=== PATIENT | male | born 1980 | race Caucasian/White ===

== ENCOUNTER 2016-11-02 20:24 | Emergency (ER) | payer OTHER | END 2016-11-02 22:26 | disposition other institution (70) | LOC: FER 20:24 | DX: K92.2 Gastrointestinal hemorrhage, unspecified (principal); Z88.5 Allergy status to narcotic agent; Z98.890 Other specified postprocedural states | CPT/HCPCS: 99285 ==

== ENCOUNTER 2020-11-04 04:48 | Inpatient (IN) | payer OTHER ==
[2020-11-04 05:29] LABS: BASOPHIL 0.8 % (0-2); EOSINOPHIL 2.6 % (0-5); HCT 43.2 % (42.0-52.0); HGB 13.4 g/dl (13.2-18.0); LYMPHOCYTE 20.7 % (15-48); MCH 27.2 pg (25.0-31.0); MCV 87.8 fL (78.0-100.0); MONOCYTE 8.3 % (0-12); MPV 11.7 fL (6.0-9.5); NEUTROPHIL 67.3 % (41-80); NRBC 0; PLT 189 K/uL (150-400); RBC 4.92 M/uL (4.70-6.00); WBC 9.7 K/uL (4.0-10.5)
[2020-11-04 05:40] LABS: ALBUMIN 3.5 g/dL (3.4-5.0); BILIRUBIN - TOTAL 1.2 mg/dL (0.2-1.0); BUN/CREAT RATIO (CALC) 13.4 RATIO; CREATININE 0.97 mg/dL (0.67-1.17); GLOBULIN (CALCULATION) 3.3 g/dL; POTASSIUM 3.8 mmol/L (3.5-5.1); TOTAL PROTEIN 6.8 g/dL (6.4-8.2)
[2020-11-04 06:31] LABS: BILIRUBIN NEGATIVE (NEGATIVE); BLOOD NEGATIVE Ery/uL (NEGATIVE); CLARITY CLEAR (CLEAR); COLOR YELLOW (YELLOW); GLUCOSE (U) NORMAL (NORMAL); LEUKOCYTES NEGATIVE Leu/uL (NEGATIVE); NITRITE NEGATIVE (NEGATIVE); PROTEIN NEGATIVE (NEGATIVE); SPECIFIC GRAVITY >=1.030 (1.001-1.030); UROBILINOGEN 0.2 mg/dL (0.2-1.0)
[2020-11-04] MEDS ORDERED: STELARA90 MG/1 ML SC (08:39)
[2020-11-04] MEDS ORDERED: LEXAPRO 10MG TA10 MG PO (08:40)
[2020-11-04] MEDS ORDERED: XIFAXAN550 MG PO (08:41)
[2020-11-04] MEDS ORDERED: BUDESONIDE EC3 MG PO (08:42)
[2020-11-04] MEDS ORDERED: VITAMIN D3 PO (08:43)
[2020-11-04] MEDS ORDERED: LANSOPRAZOLE30 MG PO (08:46)
[2020-11-04] MEDS ORDERED: RECLAST IV (09:13)
[2020-11-04] MEDS ORDERED: VENTOLIN HFA IN18 GM INH (09:13)
--- NOTE | 2020-11-04 16:11 | NUR ---
ATTEMPTED TO PLACE AN NG TUBE TO THE LEFT NARE WITHOUT ANY SUCCESS WAS IN SEVERAL INCHES AND WAS UNABLE TO GET PAST THE BACK OF THE NOSE AND THE PATIENT REQUEST THAT IT BE TAKEN OUT AND LEFT OUT. NOSE STARTED BLEEDING AND HELP PATIENT CLEAN UP AND PLACED ICE ON THE NOSE. AFTER SEVERAL MINUTES WITH THE ICE TO THE NOSE THAT BLEEDING HAD STOPPED. DR. OLPEZ NOTIFED OF THE REFUSAL OF THE NG TUBE. WILL CONTINUE TO MONITOR FOR CHANGES.
[2020-11-05 05:44] LABS: BASOPHIL 0.5 % (0-2); EOSINOPHIL 0.1 % (0-5); HCT 43.6 % (42.0-52.0); HGB 13.5 g/dl (13.2-18.0); LYMPHOCYTE 13.9 % (15-48); MCH 27.1 pg (25.0-31.0); MCV 87.6 fL (78.0-100.0); MONOCYTE 7.9 % (0-12); MPV 10.7 fL (6.0-9.5); NEUTROPHIL 77.2 % (41-80); NRBC 0; PLT 196 K/uL (150-400); RBC 4.98 M/uL (4.70-6.00); RDW 18.7 % (11.5-14.0); WBC 8.3 K/uL (4.0-10.5)
[2020-11-05 06:06] LABS: ALBUMIN 3.4 g/dL (3.4-5.0); BILIRUBIN - TOTAL 2.1 mg/dL (0.2-1.0); BUN/CREAT RATIO (CALC) 5.6 RATIO; CREATININE 0.9 mg/dL (0.67-1.17); GLOBULIN (CALCULATION) 3.3 g/dL; MAGNESIUM 2.2 mg/dL (1.8-2.4); PHOSPHORUS 3.5 mg/dL (2.6-4.7); POTASSIUM 4.5 mmol/L (3.5-5.1); TOTAL PROTEIN 6.7 g/dL (6.4-8.2)
[2020-11-06 06:29] LABS: BASOPHIL 0.6 % (0-2); EOSINOPHIL 0.6 % (0-5); HCT 37.6 % (42.0-52.0); HGB 12.1 g/dl (13.2-18.0); MCH 27.4 pg (25.0-31.0); MCHC 32.2 g/dL (32.0-36.0); MCV 85.3 fL (78.0-100.0); MONOCYTE 8.9 % (0-12); MPV 10.9 fL (6.0-9.5); NEUTROPHIL 64.6 % (41-80); NRBC 0; PLT 148 K/uL (150-400); RBC 4.41 M/uL (4.70-6.00); RDW 18.7 % (11.5-14.0); WBC 6.6 K/uL (4.0-10.5)
[2020-11-06 06:59] LABS: ALBUMIN 3.2 g/dL (3.4-5.0); BILIRUBIN - TOTAL 1.8 mg/dL (0.2-1.0); BUN/CREAT RATIO (CALC) 6.9 RATIO; CREATININE 1.01 mg/dL (0.67-1.17); GLOBULIN (CALCULATION) 2.6 g/dL; MAGNESIUM 1.9 mg/dL (1.8-2.4); PHOSPHORUS 3.6 mg/dL (2.6-4.7); POTASSIUM 4.2 mmol/L (3.5-5.1); TOTAL PROTEIN 5.8 g/dL (6.4-8.2)
== END 2020-11-06 11:03 | disposition home or self-care (01) | DRG 386 ==
LOC: FER 04:48 → FMS 07:24
PROVIDERS: Emergency Medicine; ADMIT Internal Medicine
DX: K50.90 Crohn's disease, unspecified, without complications (principal); K56.7 Ileus, unspecified; D84.821 Immunodeficiency due to drugs; K22.70 Barrett's esophagus without dysplasia; D50.9 Iron deficiency anemia, unspecified; M81.8 Other osteoporosis without current pathological fracture; T38.0X5A Adverse effect of glucocorticoids and synthetic analogues, initial encounter; Z80.8 Family history of malignant neoplasm of other organs or systems; Z79.899 Other long term (current) drug therapy; Z20.822 Contact with and (suspected) exposure to COVID-19
CPT/HCPCS: 36415; 74019; 80053; 81001; 83605; 83690; 83735; 84100; 84145; 85025; 94010; C9113; G0378; J1170; J2270; J2405; J3480; J7040; J7512; U0002